=== PATIENT | male | born 1945 | race Two or more races ===

== ENCOUNTER 2022-02-12 13:51 | Inpatient (IN) | payer OTHER ==
[~2022-02-12] VITALS: Ht 177.8 cm; Wt 102.5 kg
[2022-02-12] MEDS ORDERED: CEFEPIME 1GM/ 50ML 50 ML IV ONE (15:15)
[2022-02-12] MEDS ORDERED: SODIUM CHLORIDE 0.9% 1,000 ML IV ONE (15:15)
[2022-02-12] MEDS ORDERED: VANCOMYCIN 1GM/250ML 250 ML IV ONE (15:15)
[2022-02-12] MEDS ORDERED: SODIUM CHLORIDE 0.9% 3,000 ML IV ONE (15:30)
[2022-02-12 15:55] LABS: Basophils # (auto) 0 10 ^3/uL (0-0.2); Basophils % (auto) 0.4 % (0.0-2.0); Eosinophils # (auto) 0 10 ^3/uL (0-0.8); Eosinophils % (auto) 0.1 % (0.0-7.0); Hematocrit 43.8 % (41.0-53.0); Hemoglobin 14.6 g/dL (13.5-17.5); Lymphocytes # (auto) 1.4 10 ^3/uL (0.4-5.4); Lymphocytes % (auto) 16.9 % (10.0-50.0); Mean Corpuscular Hemoglobin 31.1 pg (28.0-32.0); Mean Corpuscular Hgb Conc. 33.4 g/dL (32.0-36.0); Monocytes # (auto) 0.9 10 ^3/uL (0-1.3); Monocytes % (auto) 11.3 % (0.0-12.0); Neutrophils # (auto) 5.8 10 ^3/uL (1.6-8.6); Neutrophils % (auto) 71.3 % (37.0-80.0); Nucleated Red Blood Cells % 0.1 %; Red Blood Cells 4.71 10^6/uL (4.5-5.90); Red Cell Distribution Width 14.6 % (11.8-14.3); White Blood Cell 8.2 10^3/uL (4.4-10.8)
[2022-02-12 16:10] LABS: INR 2.06 (0.9-1.15); Partial Thromboplastin Time 39.6 sec (24.6-33.4)
[2022-02-12 16:13] LABS: Albumin 2.9 g/dL (3.4-5.0); Anion Gap 10 (5-15); Calcium 8.8 mg/dL (8.5-10.1); Carbon Dioxide 23 mmol/L (21-32); Chloride 108 mmol/L (98-107); Glucose 246 mg/dL (74-106); Magnesium 2.1 mg/dL (1.6-2.6); Potassium 3.9 mmol/L (3.5-5.1); Sodium 141 mmol/L (136-145)
[2022-02-12 16:20] LABS: Alanine Aminotransferase 27 U/L (16-61); Alkaline Phosphatase 87 U/L (45-117); Aspartate Aminotransferase 36 U/L (15-37); Bilirubin, Total 0.7 mg/dL (0.2-1.0); Blood Urea Nitrogen 24 mg/dL (7-18); GFR African American 58 mL/min; GFR Non-African American 48 mL/min; Total Protein 6.4 g/dL (6.4-8.2)
[2022-02-12] MEDS ORDERED: FUROSEMIDE 100 MG/10ML VIAL IV ONE (17:15)
[2022-02-12] MEDS ORDERED: ACETAMINOPHEN 500 MG TAB PO PRN (18:45)
[2022-02-12] MEDS ORDERED: REMDESIVIR PER PHARMACY 0 ML IV SCH (18:45)
[2022-02-12] MEDS ORDERED: DEXTROSE (50%) 50ML SYRG IV PRN (18:45)
[2022-02-12] MEDS ORDERED: dilTIAZem 25 MG/5 ML VIAL IV ONE ×2 (18:45)
[2022-02-12] MEDS ORDERED: NITROGLYCERIN 0.4 MG SL TAB SL PRN (18:45)
[2022-02-12] MEDS ORDERED: MORPHINE SULFATE INJ 2 MG/ml SYRG IV PRN (18:45)
[2022-02-12] MEDS ORDERED: PANTOPRAZOLE 40 MG/10 ML VIAL INJ IV ONE (19:00)
[2022-02-12 19:04] VITALS: BP 165/75
[2022-02-12 19:21] LABS: Albumin 2.9 g/dL (3.4-5.0); Calcium 8.6 mg/dL (8.5-10.1); Magnesium 1.8 mg/dL (1.6-2.6); Potassium 3.4 mmol/L (3.5-5.1)
[2022-02-12 19:30] LABS: BUN/Creatinine Ratio 15.3; Bilirubin, Total 0.6 mg/dL (0.2-1.0); CRP High Sensitivity 6.96 mg/dL (< 0.3); Total Protein 6.8 g/dL (6.4-8.2)
[2022-02-12 19:35] LABS: Thyroid Stimulating Hormone 0.14 uIU/mL (0.358-3.74)
[2022-02-12 19:59] LABS: Basophils # (auto) 0 10 ^3/uL (0-0.2); Basophils % (auto) 0.1 % (0.0-2.0); Eosinophils # (auto) 0 10 ^3/uL (0-0.8); Hematocrit 45.2 % (41.0-53.0); Hemoglobin 14.8 g/dL (13.5-17.5); Lymphocytes # (auto) 0.9 10 ^3/uL (0.4-5.4); Mean Corpuscular Hemoglobin 30.5 pg (28.0-32.0); Mean Corpuscular Hgb Conc. 32.7 g/dL (32.0-36.0); Mean Corpuscular Volume 93.2 fL (80.0-100.0); Monocytes # (auto) 0.9 10 ^3/uL (0-1.3); Monocytes % (auto) 8.3 % (0.0-12.0); Neutrophils % (auto) 83.6 % (37.0-80.0); Nucleated Red Blood Cells % 0.1 %; Red Blood Cells 4.84 10^6/uL (4.5-5.90); Red Cell Distribution Width 14.9 % (11.8-14.3); White Blood Cell 10.8 10^3/uL (4.4-10.8)
[2022-02-12] MEDS ORDERED: REMDESIVIR 200 MG in NS 210ml LOADING DOSE ADULT IV ONE (20:00)
[2022-02-12] MEDS: SODIUM CHLOR 0.9% PF (SALINE LOCK) 10ML VIAL/SYR IV SCH (22:17)
[2022-02-12] MEDS: ACCU-CHEK COMFORT CURVE STRIP VI SCH (22:22)
[2022-02-12] MEDS: ENOXAPARIN SOD 40 MG/0.4 ML SYRINGE SC SCH (22:26)
[2022-02-12] MEDS: InsuLIN REG 1unit/0.01ml Soln (100units/ml) SC SCH (22:27)
[2022-02-13 04:38] LABS: Basophils # (auto) 0 10 ^3/uL (0-0.2); Basophils % (auto) 0.2 % (0.0-2.0); Eosinophils # (auto) 0 10 ^3/uL (0-0.8); Eosinophils % (auto) 0.1 % (0.0-7.0); Hematocrit 44.6 % (41.0-53.0); Lymphocytes # (auto) 1.6 10 ^3/uL (0.4-5.4); Lymphocytes % (auto) 18.2 % (10.0-50.0); Mean Corpuscular Hemoglobin 31.1 pg (28.0-32.0); Mean Corpuscular Hgb Conc. 33.7 g/dL (32.0-36.0); Mean Corpuscular Volume 92.4 fL (80.0-100.0); Monocytes # (auto) 0.8 10 ^3/uL (0-1.3); Monocytes % (auto) 9.6 % (0.0-12.0); Neutrophils # (auto) 6.2 10 ^3/uL (1.6-8.6); Neutrophils % (auto) 71.9 % (37.0-80.0); Nucleated Red Blood Cells % 0.2 %; Red Blood Cells 4.82 10^6/uL (4.5-5.90); Red Cell Distribution Width 14.6 % (11.8-14.3); White Blood Cell 8.6 10^3/uL (4.4-10.8)
[2022-02-13 04:50] LABS: Albumin 2.8 g/dL (3.4-5.0); Calcium 8.6 mg/dL (8.5-10.1); Potassium 3.4 mmol/L (3.5-5.1)
[2022-02-13 04:55] LABS: BUN/Creatinine Ratio 15.9; Bilirubin, Total 0.8 mg/dL (0.2-1.0); Total Protein 5.9 g/dL (6.4-8.2)
[2022-02-13] MEDS: SODIUM CHLOR 0.9% PF (SALINE LOCK) 10ML VIAL/SYR IV SCH ×3 (06:10→22:23)
[2022-02-13] MEDS: InsuLIN REG 1unit/0.01ml Soln (100units/ml) SC SCH ×4 (06:40→22:27)
[2022-02-13] MEDS: ACCU-CHEK COMFORT CURVE STRIP VI SCH ×4 (06:41→22:23)
[2022-02-13 07:41] LABS: Urine Bacteria FEW /hpf (None Seen); Urine Blood 2+ /uL (Negative); Urine Hyaline Cast FEW /lpf (0 - 2); Urine Specific Gravity 1.015 (1.001-1.035); Urine WBC 1 /hpf (0 - 3)
[2022-02-13] MEDS ORDERED: ENOXAPARIN SOD 40 MG/0.4 ML SYRINGE SC SCH (10:00)
[2022-02-13] MEDS: ZINC SULFATE 220mg CAP or TAB PO SCH (11:00)
[2022-02-13] MEDS: DexAMETHasone SOD PHOS 10MG/1ML VIAL INJ IV SCH (11:00)
[2022-02-13] MEDS: CHOLECALCIFEROL (VITD3) 2,000 UNIT CAP/TAB PO SCH (11:00)
[2022-02-13] MEDS: ASCORBIC ACID 1,000 MG TAB PO SCH (11:00)
[2022-02-13] MEDS: ENOXAPARIN SOD 40 MG/0.4 ML SYRINGE SC SCH ×2 (11:01→22:00)
[2022-02-13] MEDS: PANTOPRAZOLE 40 MG/10 ML VIAL INJ IV SCH (11:01)
[2022-02-13] MEDS: AZITHROMYCIN 500MG/ 250ML 250 ML IV SCH (11:01)
[2022-02-13] MEDS: ALBUTEROL SULF HFA 90MCG INH 200DOSE IN PRN (13:53)
[2022-02-13] MEDS ORDERED: METOPROLOL TARTRATE 25 MG TAB PO ONE (15:00)
[2022-02-13 17:00] VITALS: BP 147/95
[2022-02-13] MEDS: REMDESIVIR 100mg 100 MG in SODIUM CHL 0.9% 230 ML IV SCH (17:31)
[2022-02-13 17:40] VITALS: BP 146/76
[2022-02-13 17:42] LABS: INR 2.77 (0.9-1.15); Partial Thromboplastin Time 48.9 sec (24.6-33.4)
[2022-02-13] MEDS ORDERED: WARFARIN SODIUM 5 MG TAB PO ONE (20:00)
[2022-02-13 22:00] VITALS: BP 143/91
[2022-02-13] MEDS: METOPROLOL TARTRATE 25 MG TAB PO SCH (22:00)
[2022-02-14 04:51] LABS: INR 2.7 (0.9-1.15); Partial Thromboplastin Time 46.4 sec (24.6-33.4)
[2022-02-14 04:53] LABS: Calcium 9.5 mg/dL (8.5-10.1); Chloride 112 mmol/L (98-107); Potassium 3.9 mmol/L (3.5-5.1); Sodium 140 mmol/L (136-145)
[2022-02-14 04:56] LABS: Alanine Aminotransferase 24 U/L (16-61); Albumin 2.7 g/dL (3.4-5.0); Anion Gap 10 (5-15); Aspartate Aminotransferase 25 U/L (15-37); BUN/Creatinine Ratio 20.2; Blood Urea Nitrogen 25 mg/dL (7-18); Carbon Dioxide 18 mmol/L (21-32); GFR African American 73 mL/min; GFR Non-African American 60 mL/min; Glucose 249 mg/dL (74-106)
[2022-02-14 04:59] LABS: Alkaline Phosphatase 89 U/L (45-117); Bilirubin, Total 0.7 mg/dL (0.2-1.0)
[2022-02-14 05:00] VITALS: BP 147/87
[2022-02-14] MEDS: SODIUM CHLOR 0.9% PF (SALINE LOCK) 10ML VIAL/SYR IV SCH ×3 (05:04→21:16)
[2022-02-14] MEDS: InsuLIN REG 1unit/0.01ml Soln (100units/ml) SC SCH ×4 (06:25→21:31)
[2022-02-14] MEDS: ACCU-CHEK COMFORT CURVE STRIP VI SCH ×4 (06:25→21:17)
[2022-02-14 09:00] VITALS: BP 126/76
[2022-02-14] MEDS: DexAMETHasone SOD PHOS 10MG/1ML VIAL INJ IV SCH (10:00)
[2022-02-14] MEDS: PANTOPRAZOLE 40 MG/10 ML VIAL INJ IV SCH (10:00)
[2022-02-14] MEDS: ASCORBIC ACID 1,000 MG TAB PO SCH (10:00)
[2022-02-14] MEDS: METOPROLOL TARTRATE 25 MG TAB PO SCH ×2 (10:00→21:16)
[2022-02-14] MEDS: AZITHROMYCIN 500MG/ 250ML 250 ML IV SCH (10:00)
[2022-02-14] MEDS: CHOLECALCIFEROL (VITD3) 2,000 UNIT CAP/TAB PO SCH (10:00)
[2022-02-14] MEDS: ZINC SULFATE 220mg CAP or TAB PO SCH (10:00)
[2022-02-14] MEDS ORDERED: WARF5TAB71 PO (10:10)
[2022-02-14] MEDS ORDERED: FURO40TA4 PO (10:10)
[2022-02-14] MEDS ORDERED: TAMS0.4C36 PO (10:10)
[2022-02-14] MEDS ORDERED: ATOR40TA52 PO (10:10)
[2022-02-14] MEDS ORDERED: POTA-264 (10:10)
[2022-02-14] MEDS: ALBUTEROL SULF HFA 90MCG INH 200DOSE IN PRN (12:29)
[2022-02-14 13:00] VITALS: BP 131/74
[2022-02-14] MEDS ORDERED: MAGNESIUM SULFATE 1GM/100ML 100 ML IV ONE (14:30)
[2022-02-14] MEDS: REMDESIVIR 100mg 100 MG in SODIUM CHL 0.9% 230 ML IV SCH (14:30)
[2022-02-14 17:00] VITALS: BP 137/81
[2022-02-14] MEDS ORDERED: WARFARIN SODIUM 2 MG TAB PO ONE (17:00)
[2022-02-14] MEDS: AMIODARONE HCL 200 MG TAB PO SCH (21:16)
[2022-02-14 22:00] VITALS: BP 144/75
[2022-02-15 04:41] LABS: Basophils # (auto) 0 10 ^3/uL (0-0.2); Basophils % (auto) 0.2 % (0.0-2.0); Eosinophils # (auto) 0 10 ^3/uL (0-0.8); Hematocrit 41.5 % (41.0-53.0); Hemoglobin 13.7 g/dL (13.5-17.5); Lymphocytes # (auto) 1.1 10 ^3/uL (0.4-5.4); Lymphocytes % (auto) 10.7 % (10.0-50.0); Mean Corpuscular Hemoglobin 30.4 pg (28.0-32.0); Mean Corpuscular Hgb Conc. 33.1 g/dL (32.0-36.0); Mean Corpuscular Volume 91.7 fL (80.0-100.0); Monocytes % (auto) 9.7 % (0.0-12.0); Neutrophils # (auto) 8.1 10 ^3/uL (1.6-8.6); Neutrophils % (auto) 79.4 % (37.0-80.0); Nucleated Red Blood Cells % 0.1 %; Red Blood Cells 4.53 10^6/uL (4.5-5.90); Red Cell Distribution Width 15.2 % (11.8-14.3); White Blood Cell 10.3 10^3/uL (4.4-10.8)
[2022-02-15 04:55] LABS: INR 3.92 (0.9-1.15); Partial Thromboplastin Time 43.1 sec (24.6-33.4)
[2022-02-15 05:00] VITALS: BP 137/79
[2022-02-15 05:05] LABS: Calcium 9.2 mg/dL (8.5-10.1); Magnesium 2.4 mg/dL (1.6-2.6); Potassium 3.9 mmol/L (3.5-5.1)
[2022-02-15 05:08] LABS: BUN/Creatinine Ratio 29.8
[2022-02-15] MEDS: SODIUM CHLOR 0.9% PF (SALINE LOCK) 10ML VIAL/SYR IV SCH ×3 (06:11→22:14)
[2022-02-15] MEDS: EMPAGLIFLOZIN 10 MG TAB PO SCH (06:13)
[2022-02-15] MEDS: ACCU-CHEK COMFORT CURVE STRIP VI SCH ×4 (06:13→22:14)
[2022-02-15] MEDS: InsuLIN REG 1unit/0.01ml Soln (100units/ml) SC SCH ×4 (06:14→22:12)
[2022-02-15 08:00] VITALS: BP 134/76
[2022-02-15] MEDS: ALBUTEROL SULF HFA 90MCG INH 200DOSE IN PRN ×2 (09:03→20:07)
[2022-02-15] MEDS: AZITHROMYCIN 500MG/ 250ML 250 ML IV SCH (09:16)
[2022-02-15] MEDS: VALSARTAN 80 MG TAB PO SCH (09:18)
[2022-02-15] MEDS: AMIODARONE HCL 200 MG TAB PO SCH ×2 (09:19→22:14)
[2022-02-15] MEDS: ASCORBIC ACID 1,000 MG TAB PO SCH (09:20)
[2022-02-15] MEDS: ZINC SULFATE 220mg CAP or TAB PO SCH (09:20)
[2022-02-15] MEDS: CHOLECALCIFEROL (VITD3) 2,000 UNIT CAP/TAB PO SCH (09:20)
[2022-02-15] MEDS: METOPROLOL TARTRATE 25 MG TAB PO SCH ×2 (09:21→22:13)
[2022-02-15] MEDS: DexAMETHasone SOD PHOS 10MG/1ML VIAL INJ IV SCH (09:22)
[2022-02-15] MEDS: PANTOPRAZOLE 40 MG/10 ML VIAL INJ IV SCH (09:22)
[2022-02-15 12:00] VITALS: BP 154/76
[2022-02-15] MEDS ORDERED: FUROSEMIDE 20 MG TAB PO ONE (12:00)
[2022-02-15 16:00] VITALS: BP 127/73
[2022-02-15] MEDS: REMDESIVIR 100mg 100 MG in SODIUM CHL 0.9% 230 ML IV SCH (16:36)
[2022-02-15 20:38] VITALS: BP 127/73
[2022-02-15 22:00] VITALS: BP 113/64
[2022-02-16 05:00] VITALS: BP 118/78
[2022-02-16] MEDS: SODIUM CHLOR 0.9% PF (SALINE LOCK) 10ML VIAL/SYR IV SCH ×2 (06:17→14:37)
[2022-02-16] MEDS: EMPAGLIFLOZIN 10 MG TAB PO SCH (06:18)
[2022-02-16] MEDS: InsuLIN REG 1unit/0.01ml Soln (100units/ml) SC SCH ×2 (06:19→11:59)
[2022-02-16] MEDS: ACCU-CHEK COMFORT CURVE STRIP VI SCH ×2 (06:19→11:55)
[2022-02-16 06:36] LABS: Basophils # (auto) 0 10 ^3/uL (0-0.2); Basophils % (auto) 0.1 % (0.0-2.0); Eosinophils # (auto) 0 10 ^3/uL (0-0.8); Hematocrit 42.1 % (41.0-53.0); Hemoglobin 13.9 g/dL (13.5-17.5); Lymphocytes # (auto) 1.1 10 ^3/uL (0.4-5.4); Lymphocytes % (auto) 9.7 % (10.0-50.0); Mean Corpuscular Hemoglobin 30.1 pg (28.0-32.0); Mean Corpuscular Volume 91.2 fL (80.0-100.0); Monocytes # (auto) 1.1 10 ^3/uL (0-1.3); Monocytes % (auto) 10.1 % (0.0-12.0); Neutrophils # (auto) 8.9 10 ^3/uL (1.6-8.6); Neutrophils % (auto) 80.1 % (37.0-80.0); Red Blood Cells 4.61 10^6/uL (4.5-5.90); Red Cell Distribution Width 15.2 % (11.8-14.3); White Blood Cell 11.2 10^3/uL (4.4-10.8)
[2022-02-16 07:12] LABS: Albumin 2.6 g/dL (3.4-5.0); Calcium 9.3 mg/dL (8.5-10.1); Potassium 4.3 mmol/L (3.5-5.1)
[2022-02-16 07:17] LABS: BUN/Creatinine Ratio 27.3; Bilirubin, Total 0.6 mg/dL (0.2-1.0); Total Protein 5.7 g/dL (6.4-8.2)
[2022-02-16 07:18] LABS: Partial Thromboplastin Time 41.8 sec (24.6-33.4)
[2022-02-16 07:22] LABS: INR 4.31 (0.9-1.15)
[2022-02-16] MEDS: ALBUTEROL SULF HFA 90MCG INH 200DOSE IN PRN (08:18)
[2022-02-16 09:20] VITALS: BP 130/67
[2022-02-16] MEDS ORDERED: FUROSEMIDE 20 MG TAB PO SCH (10:00)
[2022-02-16] MEDS: AZITHROMYCIN 500MG/ 250ML 250 ML IV SCH (10:03)
[2022-02-16] MEDS: PANTOPRAZOLE 40 MG/10 ML VIAL INJ IV SCH (10:03)
[2022-02-16] MEDS: VALSARTAN 80 MG TAB PO SCH (10:04)
[2022-02-16] MEDS: DexAMETHasone SOD PHOS 10MG/1ML VIAL INJ IV SCH (10:04)
[2022-02-16] MEDS: ASCORBIC ACID 1,000 MG TAB PO SCH (10:04)
[2022-02-16] MEDS: CHOLECALCIFEROL (VITD3) 2,000 UNIT CAP/TAB PO SCH (10:05)
[2022-02-16] MEDS: METOPROLOL TARTRATE 25 MG TAB PO SCH (10:05)
[2022-02-16] MEDS: AMIODARONE HCL 200 MG TAB PO SCH (10:05)
[2022-02-16] MEDS: ZINC SULFATE 220mg CAP or TAB PO SCH (10:05)
[2022-02-16] MEDS ORDERED: FUR20T PO (11:55)
[2022-02-16] MEDS ORDERED: EMPA1TAB PO (11:55)
[2022-02-16] MEDS ORDERED: AMIO200T33 PO (11:55)
[2022-02-16] MEDS ORDERED: AMOX500T86 PO (11:55)
[2022-02-16] MEDS ORDERED: PRED20TA2 PO (11:55)
[2022-02-16] MEDS ORDERED: MET25T PO (11:55)
[2022-02-16 12:45] VITALS: BP 131/62
[2022-02-16] MEDS: REMDESIVIR 100mg 100 MG in SODIUM CHL 0.9% 230 ML IV SCH (15:00)
== END 2022-02-16 16:45 | disposition left against medical advice (07) | DRG 177 ==
LOC: EDBD 13:51 → ER 13:58 → TELE 18:48 → TELE-WESTW 02-13 15:25
PROVIDERS: ADMIT Nurse Practitioner Family; ATTEND Internal Medicine Geriatric Medicine
PROC: XW033E5 Introduction of Remdesivir Anti-infective into Peripheral Vein, Percutaneous Approach, New Technology Group 5 (ICD-10-PCS; principal; 2022-02-12)
DX: U07.1 COVID-19 (principal); I50.23 Acute on chronic systolic (congestive) heart failure; J12.82 Pneumonia due to coronavirus disease 2019; J96.21 Acute and chronic respiratory failure with hypoxia; E44.0 Moderate protein-calorie malnutrition; N17.9 Acute kidney failure, unspecified; J44.0 Chronic obstructive pulmonary disease with (acute) lower respiratory infection; E11.9 Type 2 diabetes mellitus without complications; E66.01 Morbid (severe) obesity due to excess calories; I11.0 Hypertensive heart disease with heart failure; Z53.29 Procedure and treatment not carried out because of patient's decision for other reasons; I25.10 Atherosclerotic heart disease of native coronary artery without angina pectoris; R00.0 Tachycardia, unspecified; I48.91 Unspecified atrial fibrillation; E55.9 Vitamin D deficiency, unspecified; E87.6 Hypokalemia; Z68.32 Body mass index [BMI] 32.0-32.9, adult; Z95.1 Presence of aortocoronary bypass graft; Z99.81 Dependence on supplemental oxygen; Z23 Encounter for immunization
CPT/HCPCS: 36415; 71045; 80048; 80053; 80061; 81001; 82306; 82728; 82962; 83036; 83605; 83615; 83735; 83880; 84443; 84484; 85025; 85379; 85610; 85730; 86141; 87040; 87426; 87804; 93005; 93306; 94640; 96365; 96368; 96375; 99291; C9113; G0378; J1100; J1815